=== PATIENT | female | born 2000 | race Hispanic/Latino ===

== ENCOUNTER 2025-06-11 06:31 | Day surgery (SDC) | payer BC ==
[2025-06-11] MEDS ORDERED: hydrALAZINE 20 MG/ML VIAL SLOW IVP PRN (07:29)
[2025-06-11 08:09] VITALS: BMI 29.2
== END 2025-06-11 08:35 | disposition home or self-care (01) ==
LOC: CSHLD/OP 06:31
PROVIDERS: ATTEND Obstetrics & Gynecology
DX: O99.612 Diseases of the digestive system complicating pregnancy, second trimester (principal); K80.20 Calculus of gallbladder without cholecystitis without obstruction; Z3A.24 24 weeks gestation of pregnancy
CPT/HCPCS: 96372; 99283